=== PATIENT | female | born 1930 | race Caucasian/White ===

== ENCOUNTER 2017-03-22 19:36 | Emergency (ER) | payer OTHER, MEDICARE ==
[~2017-03-22] VITALS: Ht 167.6 cm; Wt 90.0 kg
[~2017-03-22 19:36] MED LIST: AMLODIPINE BESYL5 MG PO; AMOXICILLIN500 MG PO; ANTACID PO; BACTRIM,SEPT1 TABLET PO; BENADRYL25 MG PO; BENADRYL50 MG PO; CALCIUM MAGNES1 EAC1 PO; CEFADROXIL PO; CIPRO500 MG PO; CIPROFLOXACIN500 M1 PO; COLACE100 MG PO; Cortaid,Hytone 1% Cr TP; FOLIC ACID1 MG PO; FUROSEMIDE20 MG PO; LASIX20 MG PO; MAGNESIUM250 MG PO; MEDROL DOSEPAK4 MG PO; MEDROL4 MG PO; NORVASC2.5 MG PO; NORVASC5 MG PO; Norvasc PO; PERCOCET 5/31 TABLET PO; PREDNISONE5 MG PO; ROBAXIN500 MG PO; SULFAMETHOXAZO1 EAC4 PO; TYLENOL REGULA325 MG PO; predniSONE PO
[2017-03-22 21:06] LABS: BASOPHIL (%) 0.2 % (0-1); EOSINOPHIL (%) 0 % (0-5); HEMATOCRIT 29.8 % (36.0-46.0); HEMOGLOBIN 9.4 G/DL (11.9-15.5); IMMATURE GRANULOCYTE (%) 0.4 % (0.0-0.7); LYMPHOCYTE (%) 11.6 % (15-42); LYMPHOCYTE COUNT 0.5 K/uL (1.0-2.8); MCH 25.3 PG (29.0-34.0); MCHC 31.5 G/DL (30.0-36.0); MCV 80.3 FL (83-99); MONOCYTE (%) 13.4 % (3-12); MONOCYTE COUNT 0.6 K/uL (0-0.8); NEUTROPHIL (%) 74.4 % (45-76); NEUTROPHIL COUNT 3.3 K/uL (1.8-6.4); PLATELET COUNT 75 K/uL (156-360); RBC DIS.WIDTH-CV 15.4 % (11.8-14.6); RBC DIS.WIDTH-SD 44.7 % (39-53); RED BLOOD COUNT 3.71 M/uL (3.80-5.20); WHITE BLOOD COUNT 4.5 K/uL (4.1-10.2)
[2017-03-22 21:15] LABS: ALBUMIN 3.1 g/dL (3.2-4.8)
[2017-03-22 21:16] LABS: CHLORIDE 106 mEq/L (99-109); POTASSIUM 3.7 mEq/L (3.7-5.4); SODIUM 137 mEq/L (136-147)
[2017-03-22 21:18] LABS: GLUCOSE 113 mg/dL (70-99)
[2017-03-22 21:20] LABS: TOTAL BILIRUBIN 0.6 mg/dL (0.0-1.0)
[2017-03-22 21:21] LABS: ALKALINE PHOSPHATASE 84 IU/L (3-129)
[2017-03-22 21:22] LABS: GFR ESTIMATE (CALCULATED) 56 mL/min/
[2017-03-22 21:23] LABS: AST (GOT) 32 IU/L (2-34); UREA NITROGEN (BUN) 22 mg/dL (9-23)
[2017-03-22 21:25] LABS: ALT (GPT) 17 IU/L (3-49)
[2017-03-22 22:45] VITALS: BP 144/74
== END 2017-03-22 22:46 | disposition home or self-care (01) ==
LOC: EME → EDBD 19:36 → EME 19:36 → TRA 19:36
PROVIDERS: Emergency Medicine Emergency Medical Services
PROC: 0HQ1XZZ Repair Face Skin, External Approach (ICD-10-PCS; principal; 2017-03-22)
DX: S01.81XA Laceration without foreign body of other part of head, initial encounter (principal); S01.21XA Laceration without foreign body of nose, initial encounter; S02.2XXA Fracture of nasal bones, initial encounter for closed fracture; S05.12XA Contusion of eyeball and orbital tissues, left eye, initial encounter; S05.11XA Contusion of eyeball and orbital tissues, right eye, initial encounter; S06.0X9A Concussion with loss of consciousness of unspecified duration, initial encounter; I10 Essential (primary) hypertension; F32.9 Major depressive disorder, single episode, unspecified; W18.30XA Fall on same level, unspecified, initial encounter; W22.09XA Striking against other stationary object, initial encounter; Z88.6 Allergy status to analgesic agent; Z88.2 Allergy status to sulfonamides; Z88.1 Allergy status to other antibiotic agents; Z88.8 Allergy status to other drugs, medicaments and biological substances
CPT/HCPCS: 70450; 70486; 71020; 80053; 85025; 93005; 99281; 99285

== ENCOUNTER 2017-08-09 23:01 | Observation (INO) | payer OTHER, MEDICARE ==
[~2017-08-09] VITALS: Ht 167.6 cm; Wt 84.5 kg
[2017-08-10 00:13] LABS: HEMATOCRIT 24.6 % (36.0-46.0); HEMOGLOBIN 7.3 G/DL (11.9-15.5); MCH 21.3 PG (29.0-34.0); MCHC 29.7 G/DL (30.0-36.0); MCV 71.7 FL (83-99); PLATELET COUNT 111 K/uL (156-360); RBC DIS.WIDTH-CV 18.7 % (11.8-14.6); RBC DIS.WIDTH-SD 48.4 % (39-53); RED BLOOD COUNT 3.43 M/uL (3.80-5.20); WHITE BLOOD COUNT 3.4 K/uL (4.1-10.2)
[2017-08-10 00:17] LABS: ALBUMIN 3.5 g/dL (3.2-4.8); CHLORIDE 110 mEq/L (99-109); POTASSIUM 3.6 mEq/L (3.7-5.4); SODIUM 142 mEq/L (136-147)
[2017-08-10 00:20] LABS: GLUCOSE 122 mg/dL (70-99); TOTAL PROTEIN 6.3 g/dL (6.4-8.3)
[2017-08-10 00:22] LABS: TOTAL BILIRUBIN 0.6 mg/dL (0.0-1.0)
[2017-08-10 00:23] LABS: SERUM ETHYL ALCOHOL < 10 mg/dL
[2017-08-10 00:24] LABS: ALKALINE PHOSPHATASE 74 IU/L (3-129); CREATININE 0.9 mg/dL (0.6-1.3); GFR ESTIMATE (CALCULATED) > 59 mL/min/
[2017-08-10 00:25] LABS: AST (GOT) 17 IU/L (2-34)
[2017-08-10 00:26] LABS: UREA NITROGEN (BUN) 26 mg/dL (9-23)
[2017-08-10 00:27] LABS: SALICYLATE < 5.0 MG/DL (15-30)
[2017-08-10 00:28] LABS: ACETAMINOPHEN (TYLENOL) 11 mcg/mL (10-30); ALT (GPT) 10 IU/L (3-49)
[2017-08-10 02:11] LABS: APPEARANCE CLEAR ((CLEAR)); BILIRUBIN NEGATIVE; BLOOD SMALL; COLOR YELLOW ((YELLOW)); GLUCOSE (STRIP) NEGATIVE; KETONES NEGATIVE; LEUKOCYTES MODERATE; NITRITE NEGATIVE; PROTEIN (STRIP) NEGATIVE; SPECIFIC GRAVITY 1.021 (1.000-1.030); UROBILINOGEN 0.2 MG/DL (0.2-1.0)
[2017-08-10 02:13] LABS: BACTERIA NONE SEEN /HPF; EPITHELIAL CELLS NONE SEEN /HPF; MUCUS NONE SEEN /LPF; UCUL ADDED? YES
[2017-08-10 02:17] LABS: AMPHETAMINE NEGATIVE (500 ng/mL); BARBITURATES NEGATIVE (200 ng/mL); BENZODIAZEPINES NEGATIVE (150 ng/mL); BUPRENORPHINE NEGATIVE (10 ng/mL); COCAINE NEGATIVE (150 ng/mL); METHADONE NEGATIVE (200 ng/mL); METHAMPHETAMINE NEGATIVE (500 ng/mL); OPIATES (MORPHINE) NEGATIVE (100 ng/mL); OXYCODONE NEGATIVE (100 ng/mL); PHENCYCLIDINE NEGATIVE (25 ng/mL); PROPOXYPHENE NEGATIVE (300 ng/mL); THC CANNABINOIDS NEGATIVE (50 ng/mL); TRICYCLIC ANTIDEPRESSANTS NEGATIVE (300 ng/mL)
[2017-08-10 05:27] LABS: HEMATOCRIT 24.6 % (36.0-46.0); HEMOGLOBIN 7.1 G/DL (11.9-15.5); MCH 20.8 PG (29.0-34.0); MCHC 28.9 G/DL (30.0-36.0); MCV 71.9 FL (83-99); PLATELET COUNT 98 K/uL (156-360); RBC DIS.WIDTH-CV 18.7 % (11.8-14.6); RBC DIS.WIDTH-SD 48.8 % (39-53); RED BLOOD COUNT 3.42 M/uL (3.80-5.20); WHITE BLOOD COUNT 2.9 K/uL (4.1-10.2)
[2017-08-10 05:40] VITALS: BP 192/98
[2017-08-10 05:55] LABS: HDL CHOLESTEROL 42 MG/DL (Desirable>=50); LDL CHOLESTEROL 75 mg/dL (Desirable<100); NON-HDL CHOLESTEROL 88 mg/dL (Desirable<160); TOTAL CHOLESTEROL 130 mg/dL (Desirable<200); TRIGLYCERIDES 64 MG/DL (Normal: <150)
[2017-08-10 07:48] VITALS: BP 174/76
[2017-08-10 11:50] VITALS: BP 166/7
[2017-08-11 10:19] LABS: HEMOGLOBIN A1c (GLYCOHEMOGLOB) 5.1 % (Below 5.7)
== END 2017-08-10 14:28 | disposition home or self-care (01) ==
LOC: EME 23:01 → EDOF 08-10 02:55 → ENRESERV 08-10 02:57 → 4SOUTH 08-10 05:16
PROVIDERS: Emergency Medicine; Hospitalist
DX: T42.8X1A Poisoning by antiparkinsonism drugs and other central muscle-tone depressants, accidental (unintentional), initial encounter (principal); G92 Toxic encephalopathy; R41.0 Disorientation, unspecified; D61.818 Other pancytopenia; I10 Essential (primary) hypertension; M19.90 Unspecified osteoarthritis, unspecified site; Z86.19 Personal history of other infectious and parasitic diseases; N39.0 Urinary tract infection, site not specified; D50.9 Iron deficiency anemia, unspecified; Z88.1 Allergy status to other antibiotic agents; Z88.2 Allergy status to sulfonamides; Z88.5 Allergy status to narcotic agent; Z88.6 Allergy status to analgesic agent
CPT/HCPCS: 70450; 70551; 80053; 80061; 81003; 83036; 85027; 87086; 93005; 99281; 99285; G0378; G0480; J7030